=== PATIENT | female | born 1960 | race Caucasian/White ===

== ENCOUNTER 2023-05-15 09:05 | Emergency (ER) | payer MEDICARE, OTHER ==
[~2023-05-15] VITALS: Ht 160 cm; Wt 90.9 kg
[2023-05-15 09:27] VITALS: BP 170/102; PULSE 84; RESP 18; TEMP 98.2
[2023-05-15] MEDS ORDERED: IBUPROFEN 600 MG TABLET PO ONE (09:45)
[2023-05-15] MEDS ORDERED: IBUP-1492 PO (11:17)
== END 2023-05-15 11:47 | disposition home or self-care (01) ==
LOC: EMS 09:05
DX: S22.31XA Fracture of one rib, right side, initial encounter for closed fracture (principal); T74.11XA Adult physical abuse, confirmed, initial encounter; M19.90 Unspecified osteoarthritis, unspecified site; E11.9 Type 2 diabetes mellitus without complications; E78.00 Pure hypercholesterolemia, unspecified; I10 Essential (primary) hypertension; F14.90 Cocaine use, unspecified, uncomplicated; M25.561 Pain in right knee; Z98.890 Other specified postprocedural states; Y08.89XA Assault by other specified means, initial encounter; Y93.89 Activity, other specified; Y92.89 Other specified places as the place of occurrence of the external cause; Y99.8 Other external cause status
CPT/HCPCS: 71101; 82962; 99283